=== PATIENT | female | born 1985 | race Caucasian/White ===

== ENCOUNTER → 2024-01-23 18:06 | Outpatient (REF) | payer OTHER, SELFPAY | LOC: WDC 18:06 | PROVIDERS: ATTENDING PHYSICIAN Obstetrics & Gynecology; FAMILY PHYSICIAN Family Medicine | DX: Z12.31 Encounter for screening mammogram for malignant neoplasm of breast (principal) | CPT/HCPCS: 77063; 77067 ==

== ENCOUNTER 2024-04-17 06:14 | Day surgery (SDC) | payer OTHER, SELFPAY ==
[2024-04-17] VITALS (8 sets, daily range): BP systolic 97–115; BP diastolic 45–68; BMI 31.8
[2024-04-17] MEDS: NORMOSOL-R 1000 IV (11:02)
== END 2024-04-17 16:28 | disposition home or self-care (01) ==
LOC: SDS 06:14
PROVIDERS: ATTENDING PHYSICIAN Obstetrics & Gynecology
DX: N87.9 Dysplasia of cervix uteri, unspecified (principal); N87.1 Moderate cervical dysplasia
CPT/HCPCS: 57522; 88307; 88341; 88342

== ENCOUNTER → 2025-01-25 18:01 | Outpatient (REF) | payer OTHER, SELFPAY | LOC: WDC 18:01 | PROVIDERS: ATTENDING PHYSICIAN Obstetrics & Gynecology; FAMILY PHYSICIAN Family Medicine | DX: Z12.31 Encounter for screening mammogram for malignant neoplasm of breast (principal) | CPT/HCPCS: 77063; 77067 ==